=== PATIENT | male | born 1980 | race Two or more races ===

== ENCOUNTER 2018-05-22 10:11 | Emergency (ER) | payer OTHER ==
[~2018-05-22] VITALS: Ht 185.4 cm; Wt 112.5 kg
[~2018-05-22 10:11] MED LIST: VENTOLIN HFA18 GM INH
[2018-05-22] MEDS ORDERED: Ketorolac 60mg Inj IM ONE (10:15)
[2018-05-22] MEDS ORDERED: Cyclobenzaprine 10mg Tab ORAL ONE (10:15)
[2018-05-22 10:22] VITALS: BP 141/98
--- NOTE | 2018-05-22 10:24 | NUR ---
ED Nurse Note:pt. was MARIA DEL CARMEN from work with chronic lower back pain complain, pain meds given
--- NOTE | 2018-05-22 11:13 | Emergency Room Report ---
History of Present Illness General Chief Complaint: Back Pain-No Injury Source: Patient Present Illness HPI This patient states he has a history of recurrent back spasm. He states that this morning he woke up and noticed a little bit of discomfort in his upper back. He states that he was on his way to work and he suddenly developed a severe spasm in his mid back. He states that it was so severe he was having difficulty breathing. He states that he had to wool puller and called 911. He states he has a history of similar muscle spasms. He has undergone x-rays but no advanced imaging. He does have a history of weightlifting and jujitsu. He states he doesn't train much any more. He denies weakness. He denies tingling or numbness. He denies headache or neck pain. Denies shortness of breath. He has no other complaints. Allergies: Coded Allergies: No Known Allergies (Unverified , 05/22/18) Patient History Past Medical History: see triage record Social History: Denies: smoking, alcohol use, drug use Reviewed Nursing Documentation: PMH: Agreed; PSxH: Agreed Nursing Documentation-PMH Past Medical History: No History, Except For Hx Asthma: Yes Review of Systems All Other Systems: negative except mentioned in HPI Physical Exam Vital Signs Date Time Temp Pulse Resp B/P (MAP) Pulse Ox O2 Delivery O2 Flow Rate FiO2 05/22/18 10:04 98.1 71 16 141/98 100 Room Air Sp02 EP Interpretation: reviewed, normal General Appearance: no apparent distress, alert, GCS 15, non-toxic Head: normocephalic, atraumatic Eyes: bilateral eye normal inspection, bilateral eye PERRL ENT: hearing grossly normal, normal pharynx, no angioedema, normal voice Neck: full range of motion, supple/symm/no masses Respiratory: chest non-tender, lungs clear, normal breath sounds, no respiratory distress, no retraction, no accessory muscle use, speaking full sentences Cardiovascular #1: regular rate, rhythm, no edema Gastrointestinal: normal bowel sounds, non tender, soft, non-distended, no guarding, no rebound Rectal: deferred Musculoskeletal: gait/station normal, tender - TTP over the paraspinal m. of the T-spine. Pain w/ movement of the torso or walking. Neurologic: alert, oriented x3, responsive, motor strength/tone normal, sensory intact, speech normal Psychiatric: judgement/insight normal, memory normal, mood/affect normal, no suicidal/homicidal ideation Skin: normal color, no rash, warm/dry, well hydrated Medical Decision Making Diagnostic Impression: Primary Impression: Muscle spasm Additional Impression: Back pain ER Course This patient has a clinical presentation consistent with mechanical back pain. There are no red flags on physical exam. The patient denies any concerning features such as trauma, fevers, night sweats, history of malignancy, pain worse at night, IV drug abuse, urinary/fecal incontinence or retention, focal weakness or change in sensation, or refractory pain. Given these pertinent negatives in the history and physical exam an emergent cause of the back pain such as epidural abscess, metastasis to bone, cauda equina syndrome, and fracture is less likely. I also doubt emergent cardiovascular cause of back pain such as aortic dissection a ruptured abdominal aortic aneurysm given patient with equal pulses in all 4 extremities with no diastolic murmur or pulsatile abdominal mass. The patient was counseled that, though unlikely, the possibility of an emergent cause of back pain may still be present and that the patient should return immediately if symptoms persist or worsen. The symptoms are reproducible with movement. Patient had a benign evaluation and neurologic examination. No emergency etiology was identified. Last Vital Signs Date Time Temp Pulse Resp B/P (MAP) Pulse Ox O2 Delivery O2 Flow Rate FiO2 05/22/18 10:22 98.1 89 16 141/98 100 Room Air Status: improved Disposition: HOME, SELF-CARE Condition: Improved Referrals: [facility]ERR[facility] (PCP) Patient Instructions: Back Pain, Adult Mindi Pollard DO May 22, 2018 11:13
--- NOTE | 2018-05-22 12:11 | NUR ---
ED Nurse Note: BROUGHT IN BY PT'S FATHER FROM SCHOOL DUE TO HEAD INJURY. PER PT, HE HIT HIS HEAD AGAINST THE METAL FENCE, NOTICED BLOOD ON BACK OF THE HEAD AND PRESSURE WAS APPLIED. NO ACTIVE BLEEDING AT THIS TIME. ARTHUR HART.
[2018-05-22] MEDS ORDERED: TRAMADOL HCL50 MG ORAL (12:33)
[2018-05-22 12:46] VITALS: BP 141/98
--- NOTE | 2018-05-22 12:48 | NUR ---
ER DISCHARGE NOTE: Patient is cleared to be discharged per ERMD, pt is aox4, on room air, with stable vital signs. pt was given dc and prescription instructions, pt was able to verbalize understanding, pt is able to ambulate with steady gait. pt took all belongings.
== END 2018-05-22 12:48 | disposition home or self-care (01) ==
LOC: EDBD 10:11 → EMR 10:35
DX: M62.830 Muscle spasm of back (principal); M54.9 Dorsalgia, unspecified; J45.909 Unspecified asthma, uncomplicated
CPT/HCPCS: 96372; 99283